=== PATIENT | female | born 1940 | race Caucasian/White ===

== ENCOUNTER 2022-10-05 10:58 | Outpatient (CLI) | payer MEDICARE, BC, OTHER | END 2022-10-05 10:59 | disposition home or self-care (01) | LOC: MRI 10:58 | PROVIDERS: ATTEND Neurological Surgery | DX: M47.26 Other spondylosis with radiculopathy, lumbar region (principal); M47.817 Spondylosis without myelopathy or radiculopathy, lumbosacral region; M77.8 Other enthesopathies, not elsewhere classified; M51.37 Other intervertebral disc degeneration, lumbosacral region; R29.890 Loss of height; M25.78 Osteophyte, vertebrae | CPT/HCPCS: 72120; 72148 ==